=== PATIENT | female | born 1950 | race Caucasian/White ===

== ENCOUNTER 2016-07-08 19:56 | Emergency (ER) | payer OTHER ==
[~2016-07-08] VITALS: Ht 154.9 cm; Wt 50.8 kg
[2016-07-08 21:10] LABS: ABSOLUTE NEUTROPHILS 8.6 thou/uL (1.4-8.2); BASOPHILS 0.3 % (0.0-2.0); EOSINOPHILS 0.6 % (0.0-3.0); HEMATOCRIT 33.9 % (37.0-47.0); HEMOGLOBIN 11.5 gm/dL (12.0-15.0); LYMPHOCYTES 18.9 % (24.0-44.0); MANUAL DIFF NO; MCH 31.2 pg (26.0-34.0); MCHC 33.8 g/dL (28.0-37.0); MCV 92.2 fL (80.0-100.0); MONOCYTES 5.5 % (1.0-8.0); PLATELET COUNT 208 thou/uL (150-400); POLYS 74.7 % (36.0-66.0); RBC 3.68 mil/uL (4.20-5.00); WBC 11.5 thou/uL (4.0-11.0)
[2016-07-08 21:13] LABS: CREATININE 0.6 mg/dL (0.6-1.0); POTASSIUM 3.5 mmol/L (3.5-5.1)
[2016-07-08 21:25] LABS: APTT 21.6 Seconds (24.5-32.8); INR 1.1; PROTIME 10.9 Seconds (9.3-11.4)
[2016-07-08 21:46] VITALS: BP 107/60
== END 2016-07-08 21:49 | disposition home or self-care (01) ==
LOC: ER 19:56
PROVIDERS: Emergency Medicine
DX: S31.41XA Laceration without foreign body of vagina and vulva, initial encounter (principal); X58.XXXA Exposure to other specified factors, initial encounter; Y93.89 Activity, other specified; Y92.89 Other specified places as the place of occurrence of the external cause; Y99.8 Other external cause status